=== PATIENT | male | born 1970 | race Caucasian/White ===

== ENCOUNTER 2022-02-12 00:38 | Day surgery (SDC) | payer OTHER, SELFPAY ==
[2022-01-29 12:58] VITALS: BMI 36.5
[2022-02-12 08:25] VITALS: BP 126/84; PULSE 70; RESP 18; TEMP 36.5; O2SAT 99
[2022-02-12] MEDS: LACTATED RINGERS 1,000 ML 150 ML IV CONT (08:37)
--- NOTE | 2022-02-12 09:03 | PM.HPGS ---
History of Present Illness History of Present Illness Consent: Risks, benefits, and alternatives have been discussed and questions answered. Patient agrees to proceed with procedure. Chief complaint: crohns disease Narrative: Mario Golden is a 51 year old male here for screening colonoscopy, last one about 10 years ago and was told that had spot of crohn's but never has been bad enough to be on any treatment. His mother had Crohn's that required surgery. He will have loose stools after eating certain meals. Review of Systems Constitutional: Constitutional: Denies headache(s) and Denies weakness Eyes: Eyes: Denies blurry vision ENT: Reports Normal hearing present, Denies headache(s) and Denies neck pain Cardiovascular: Cardiovascular: Denies chest pain and Denies dyspnea Respiratory: Respiratory: Denies dyspnea Gastrointestinal: Gastrointestinal: Reports no additional gastrointestinal complaints Genitourinary: Genitourinary: Denies dysuria Musculoskeletal: Musculoskeletal: Denies neck pain Integumentary/Breasts: Skin/Breast: Denies dry skin Neurologic: Reports Normal hearing present, Denies headache(s) and Denies weakness Psychiatric: Psychiatric: Denies anxiety Endocrine: Endocrine: Denies change in body appearance Hematologic/Lymphatic: Hematologic/Lymphatic: Denies easy bleeding Allergic/Immunologic: Allergic/Immunologic: Denies urticaria PMFSH Past Medical History Medical History (Updated 02/12/22 @ 09:04 by Rafael Hudson MD) BMI 37.0-37.9, adult Colon cancer screening Crohn's disease Family History Family History Father Hypertension Family history of coronary artery disease Grandparent Family history of lung cancer Social History Social History Smoking status: Never smoker Tobacco type: smokeless tobacco Smokeless tobacco user: chewing tobacco Alcohol intake: current Drinks per week: 5 Substance use: never Substance use type: does not use Living arrangements: alone Spiritual care concerns: No Meds Home Medications and Allergies Home Medications Medication Instructions Recorded Confirmed Type Fish Oil 1 cap PO DAILY 02/12/22 02/12/22 History One-A-Day Men's Multivitamin 1 tab-cap PO DAILY 02/12/22 02/12/22 History Allergies Allergy/AdvReac Type Severity Reaction Status Date / Time No Known Allergies Allergy Mild Verified 02/12/22 08:21 Vital Signs Vital Signs - 24 hr 02/12/22 08:25 Temperature 97.7 F Pulse Rate 70 Respiratory Rate 18 Blood Pressure 126/84 Pulse Oximetry 99 Oxygen Delivery Room Air Exam Const: General: comfortable and no acute distress HENMT: General nose exam: Normal nares present Eyes: General: appearance normal, both eyes and all related structures Neck: Neck: no JVD Resp: Auscultation: clear to auscultation bilaterally Cardio: Rate: regular rate Rhythm: regular rhythm GI: Inspection: non-distended GI Palp: Yes Soft to palpation Skin: General skin exam: normal color Neuro: General: gait normal Speech: normal speech Extrem: General: normal to inspection Psych: Mental Status: mental status grossly normal Assessment and Plan Assessment and plan (1) Colon cancer screening: Code(s): Z12.11 - Encounter for screening for malignant neoplasm of colon Status: Acute Assessment and Plan: colonoscopy (2) Crohn's disease: Qualifiers: Gastrointestinal tract location: unspecified location Digestive disease complication type: unspecified complication Qualified Code(s): K50.919 - Crohn's disease, unspecified, with unspecified complications Code(s): K50.90 - Crohn's disease, unspecified, without complications Status: Acute Assessment and Plan: ? he was told about it but never has been on treatment will get random colon bx
--- NOTE | 2022-02-12 09:09 | P.PNAN_ITS ---
Anes - Initial Pre Proc Eval Procedure: Operation Date: 02/12/22 09:30 Proposed Procedures p Colonoscopy - Rafael Hudson MD Date/Time: 02/12/22 09:09 Surgeon: Rafael Hudson MD Pre Op Diagnosis: crohns disease Patient Data Age: 51 Gender: M Height: 1.73 m Weight: 108.9 kg Last Vital Signs Temp 97.7 F 02/12/22 08:25 Pulse 70 02/12/22 08:25 Resp 18 02/12/22 08:25 BP 126/84 02/12/22 08:25 Pulse Ox 99 02/12/22 08:25 O2 Del Method Room Air 02/12/22 08:25 Allergies Allergy/AdvReac Type Severity Reaction Status Date / Time No Known Allergies Allergy Mild Verified 02/12/22 08:21 Home Medications Medication Instructions Recorded Confirmed Type Fish Oil 1 cap PO DAILY 02/12/22 02/12/22 History One-A-Day Men's Multivitamin 1 tab-cap PO DAILY 02/12/22 02/12/22 History Patient hx anesthesia problems: none Family hx anesthesia problems: none Results Review: All pre-operative results and documents have been reviewed as part of the pre- operative evaluation. [facility] Past Medical History Medical History (Updated 02/12/22 @ 09:04 by Rafael Hudson MD) BMI 37.0-37.9, adult Colon cancer screening Crohn's disease Family History Family History Father Hypertension Family history of coronary artery disease Grandparent Family history of lung cancer Social History Social History Smoking status: Never smoker Tobacco type: smokeless tobacco Smokeless tobacco user: chewing tobacco Alcohol intake: current Drinks per week: 5 Substance use: never Substance use type: does not use Living arrangements: alone Spiritual care concerns: No Anes - Eval Final PreProcedure Day of Procedure 02/12/22 09:09 Patient weight: obese Heart: regular rate and rhythm Lungs: clear to auscultation Airway: Mallampati scale class II Neurological: alert and oriented Last oral intake: >/= 8 hours ASA classification: III Emergent: no Anesthetic plan: proceed Anesthesia type and monitoring: general GIVS and standard monitoring Results Review: All pre-operative results and documents have been reviewed as part of the pre-operative evaluation. Informed Consent: The patient's anesthetic plan and its attendant risks and benefits were discussed with the patient/family/POA. Questions were solicited and answers provided to the satisfaction of the patient/family/POA.
[2022-02-12 09:19] VITALS: BP 122/78; PULSE 67; RESP 19; O2SAT 99
[2022-02-12 09:29] VITALS: BP 134/86; PULSE 67; RESP 17; O2SAT 99
[2022-02-12 09:39] VITALS: BP 134/86; PULSE 62; RESP 19; O2SAT 100
== END 2022-02-12 09:49 | disposition home or self-care (01) ==
PROVIDERS: PCP Family Medicine; Visit Provider Internal Medicine Gastroenterology
PROC: 0DJD8ZZ Inspection of Lower Intestinal Tract, Via Natural or Artificial Opening Endoscopic (ICD-10-PCS; CPT 45378; principal; 2022-02-12 09:30)
DX: Z12.11 Encounter for screening for malignant neoplasm of colon (principal); K64.8 Other hemorrhoids; K50.919 Crohn's disease, unspecified, with unspecified complications; F17.220 Nicotine dependence, chewing tobacco, uncomplicated; E66.9 Obesity, unspecified; Z68.36 Body mass index [BMI] 36.0-36.9, adult
CPT/HCPCS: 45380; 88305; J2704; J7120